=== PATIENT | male | born 1980 | race Hispanic/Latino ===

== ENCOUNTER → 2021-10-21 16:41 | Outpatient (CLI) | payer OTHER, SELFPAY ==
[2021-10-21 18:39] LABS: Eosinophils Percent Auto 0.4 % (2-4); Hematocrit 42.9 % (41-53); Lymphocytes Percent Auto 19.4 % (25-40); Mean Corpuscular HGB Conc 35.1 % (30-36); Mean Corpuscular Hemoglobin 30.8 PG (26-34); Mean Corpuscular Volume 87.8 fL (80-100); Monocytes Percent Auto 8.2 % (3-14); Neutrophils Percent Auto 71.6 % (50-75); Platelet Count 251 X10^3/uL (150-400); Red Blood Cell Count 4.88 X10^6/uL (4.5-5.9); White Blood Cell Count 8.4 X10^3/uL (4.5-11.0)
[2021-10-21 18:40] LABS: Add Manual Diff / Slide Review NO; Basophils Absolute Auto 0 /uL (0-100); Basophils Percent Auto 0.4 % (0-2); Eosinophils Absolute Auto 0 /uL (0-450); Lymphocytes Absolute Auto 1600 /uL (1100-4500); Monocytes Absolute Auto 700 /uL (0-900); Neutrophils Absolute Auto 6000 /uL (1500-7000)
[2021-10-21 19:34] LABS: Erythrocyte Sedimentation Rate 4 MM/HR (0-15)
[2021-10-21 19:42] LABS: Appearance Urine UA CLEAR; Bilirubin Urine UA NEGATIVE (NEGATIVE); Color Urine UA YELLOW; Glucose Urine UA NEGATIVE (Negative); Ketones Urine UA NEGATIVE (NEGATIVE); Leukocyte Esterase Urine UA NEGATIVE (NEGATIVE); Nitrite Urine UA NEGATIVE (Negative); Occult Blood Urine UA TRACE-LYSED (Negative); Protein Urine UA NEGATIVE (Negative); Specific Gravity Urine UA 1.025 (1.000-1.035); Urobilinogen Urine UA 0.2 E.U./dL (0.2)
[2021-10-21 20:21] LABS: RBC Urine 0-1/HPF (0-5/HPF); WBC Urine None Seen (0-5/HPF)
[2021-10-21 20:22] LABS: Bacteria Urine None Seen; Culture Indicated Urine Cult Not Indicated
[2021-10-22 14:07] LABS: BUN Creatinine Ratio 23.7 (6-22); Blood Urea Nitrogen 18 mg/dL (9-20); Calcium 9.2 mg/dL (8.4-10.2); Carbon Dioxide 23 mmol/L (22-32); Chloride 104 mmol/L (98-107); Estimated Glomerular Filt Rate > 60.0 mL/min (>60); Glucose 87 mg/dL (70-100); HEMOLYSIS < 15 (0-50); Potassium 3.8 mmol/L (3.4-5.1); Sodium 140 mmol/L (137-145)
[2021-10-22 14:09] LABS: Hemoglobin A1C% w Est Avg Glu 5.3 % (4.0-6.0)
== END ==
PROVIDERS: PCP Orthopaedic Surgery; Referring Provider Orthopaedic Surgery; Visit Provider Orthopaedic Surgery
DX: Z01.818 Encounter for other preprocedural examination (principal); Z01.812 Encounter for preprocedural laboratory examination; R73.9 Hyperglycemia, unspecified; N39.0 Urinary tract infection, site not specified; E79.0 Hyperuricemia without signs of inflammatory arthritis and tophaceous disease
CPT/HCPCS: 36415; 80048; 81001; 83036; 84550; 85025; 85651; 93005; 93010

== ENCOUNTER 2022-01-19 08:25 | Day surgery (SDC) | payer OTHER, SELFPAY ==
[2022-01-12 09:55] VITALS: BMI 23.1
[2022-01-19] VITALS (15 sets, daily range): BP systolic 102–122; BP diastolic 52–72; PULSE 70–92; RESP 12–18; TEMP 35.8–36.6; O2SAT 96–99; BMI 23.1
--- NOTE | 2022-01-19 08:51 | DI.RAD.S_ITS ---
PROCEDURE: XR PELVIS 1-2V INDICATIONS: inner op right hip TECHNIQUE: Intra-operative view of the pelvis and hip acquired. COMPARISON: None. FINDINGS: Bones: 2 images demonstrate incomplete placement of a total right hip arthroplasty. Hardware is in expected positions. Soft tissues: Overlying surgical retractors are present, along with other intraoperative changes. IMPRESSION: Operative imaging utilized during total hip arthroplasty with no radiographic evidence of complications. Dictated by: Corbin Cohen M.D. on 01/19/2022 at 17:17 Approved by: Corbin Cohen M.D. on 01/19/2022 at 17:18
--- NOTE | 2022-01-19 09:28 | SUR.PREOP ---
Account Planner services called for all pre-op and basic discharge instructions. Pt will need a call in again for discharge specifics. at bedside during call as well. Pt verbalizes he has no questions as of now.
[2022-01-19 09:33] LABS: COVID19 -Nasal RAPID Negative (Negative)
[2022-01-19] MEDS: LACTATED RINGERS 1,000 ML 42 ML IV (09:33)
[2022-01-19] MEDS: ACETAMINOPHEN 325 MG TABLET 975 MG PO (09:33)
[2022-01-19] MEDS: CELECOXIB 200 MG CAPSULE PO (09:34)
[2022-01-19] MEDS: VANCOMYCIN 1,000 MG/200 ML PIGGYBACK 200 MG IV (10:01)
--- NOTE | 2022-01-19 10:59 | PM.PREOP ---
Pre-operative Note COVID-19 COVID-19 status: Negative Interval Note History & Physical reviewed/Exam performed by Physician: Yes Changes to H&P: No
[2022-01-19] MEDS: CEFAZOLIN 2 GM/20 ML SYRINGE IV ×2 (11:27→20:33)
[2022-01-19] MEDS: TRANEXAMIC ACID 1,000 MG VIAL 2000 MG INJ ×2 (11:28→11:54)
--- NOTE | 2022-01-19 11:44 | SUR.OPER ---
Lateral on padded OR bed. Gel axillary roll. Arms secured on padded armboard with pillow supporting top arm. Gel pad placed under left arm. Padded hip positioner braces x4 - anterior and posterior chest and pelvis. Additional gel pad used anterior pelvis. Gel pad under bottom leg from knee to foot and secured with tape over sheet. Operative leg in control of the Surgeon.
--- NOTE | 2022-01-19 11:45 | SUR.OPER ---
Money Room Teller phone used for pre-op interview. Rectification Printer Zach ID # [id number]. Patients S.Tesha Castillo at bedside, phone # [phone], Dr. Granaods to call her with an update after surgery. All questions answered.
[2022-01-19] MEDS: BUPIVACAINE 0.25% (PF) 60 ML, EPINEPHrine 0.3 MG INJ (11:52)
[2022-01-19] MEDS: EPINEPHrine 1 MG/10 ML SYRINGE INJ (11:56)
[2022-01-19] MEDS: BUPIVACAINE LIPOSOME 266 MG/20 ML VIAL INJ (12:50)
[2022-01-19] MEDS: SODIUM CHLORIDE IRRIG SOLUTION 250 ML, POVIDONE-IODINE SPONGE STICKS 1 APPLIC IRR (12:52)
--- NOTE | 2022-01-19 14:00 | DI.RAD.S_ITS ---
PROCEDURE: XR HIP W PEL IF DONE RT 2V INDICATIONS: POST OP RIGHT HIP/TOTAL TECHNIQUE: AP pelvis and lateral view of the right hip acquired. COMPARISON: None. FINDINGS: Bones: Patient is status post right hip arthroplasty, with hardware components in expected positions. The hip joint appears congruent. The visualized bony structures appear intact. Soft tissues: Overlying postoperative changes are noted. No suspicious soft tissue densities. IMPRESSION: Expected postsurgical change for right hip arthroplasty. Dictated by: Sharlene Balbuena MD, PhD on 01/19/2022 at 16:50 Approved by: Sharlene Balbuena MD, PhD on 01/19/2022 at 16:51
[2022-01-19] MEDS: ONDANSETRON 4 MG/2 ML INJ IV ×2 (14:04→17:43)
--- NOTE | 2022-01-19 14:16 | SUR.PHASEI ---
Attempted to call report but RN was at lunch and will have them call me when they are done.
--- NOTE | 2022-01-19 14:23 | PM.OP.1 ---
Operative Date/Time/Diagnoses Date of procedure: 01/19/22 Time of procedure: 14:20 Pre-op diagnosis: Severe right hip osteoarthritis with marked right femoral shortening severe destruction of the femoral head with lateral subluxation of hip Post-op diagnosis: same Procedure & Clinicians Procedure: Right total hip arthroplasty posterior approach Same procedure as scheduled: Yes Indications: The patient has had progressively worsening right hip pain with radiographic changes consistent with arthritis. Non-operative management has failed and the patient has requested total hip replacement. The risks, benefits and alternatives to surgery were discussed with the patient prior to proceeding. Risks discussed included, but were not limited to, failure to relieve pain, leg length discrepancy, dislocation, stiffness, infection, nerve damage, deep venous thrombosis, pulmonary embolism, stroke, coma, heart attack, permanent paralysis and , as well as the potential need for eventual revision of the prosthetic. Surgeon: Cheri Granados Vice President Global Digital Marketing: Js Brown Anesthesia Type: General and Spinal Operative Notes Findings: Severe right hip osteoarthritis, some deformity of the right proximal femur, adequate quality bone, some lateral wear the acetabulum with slight uncoverage Closure Type: primary Specimen(s): none sent Prosthetic devices, grafts, tissues, transplants, or devices: Granados and nephew anthology size 6 high offset, redapt 56 mm cup, three 6.5 mm screws, neutral poly liner, +0 head Estimated Blood Loss (mL): 250 Blood products transfused: none Procedure in detail: The patient was seen in the pre-operative area, where the patient identified the right hip as the operative site and this was marked with my initials. The patient received pre-operative antibiotics and was taken to the operating room and placed on the operative table in the left lateral decubitus position after satisfactory anesthesia. A windows system admin out was performed. The right leg was prepared from the ankle to the iliac crest with ChloroPrep in the usual fashion and draped through sterile drapes. The hip was approached through an approximately 20 cm incision centered over the greater trochanter and curving gently posteriorly as it went proximally. This was carried sharply to the fascia betty, which was divided and retracted with a self retaining retractor. The trochanteric bursa was excised with care being taken to avoid the sciatic nerve, which was identified and protected throughout the case. The short external rotators were incised and the capsulomuscular flap was raised and tagged for later repair. The hip was dislocated, and a femoral neck osteotomy performed approximately 15 mm above the lesser trochanter. Retractors were placed around the femur. The canal was opened with a box cutting osteotome, followed by a T handled reamer and a lateralizing reamer. The chili pepper broach was then used, followed by sequential broaching until there was good stability of the broach in the femur. Retractors were placed to expose the acetabulum. The labrum and central soft tissues were removed. Reaming was performed initially going up in 2 mm increments, then 1 mm increments until good bite was obtained with an odd sized reamer. The cup 1 mm larger than the last reamer was then inserted using the appropriate anteversion guides. He had a somewhat washed out acetabulum. It was specifically medialized. There was some lateral wall of mild deficiency. I specifically medialized it and then worked to get good acetabular coverage. The redapt cup was selected. It was stabilized with 3 screws. They were left nonlocking. A trial neutral liner was placed. I did a trial of both a lateralizing acetabular liner and a nonlateralized the acetabular liner. The broach was placed in the canal. A trial head and neck were then placed and the hip relocated and checked for leg length and stability. An intraoperative film confirmed the component position and no evidence of fracture. The patient was stable in the position of sleep, of squatting, and could be put through a range of motion with 45 degrees internal rotation without dislocation. At 90 degrees flexion, internal rotation to 80 was possible before dislocation. This was felt to be satisfactory and the appropriate components were opened, and the trials were removed. In maximum external rotation with the +4 lateralizing acetabular liner there was slight impingement on the acetabular liner so I would also did a trial with a neutral acetabular liner and a +4 head. There was no impingement with this combination. The standard acetabular liner was impacted into position. The final stem was then impacted into the prepared femoral canal. A brief Betadine soak was performed while trialing with head options. The hip was meticulously irrigated with normal saline. Finally the femoral head was impacted onto the stem. The acetabulum was cleared of all material and the hip relocated one final time. The capsulomuscular flap was then repaired to the greater trochanter though an awl hole using the tag sutures. The short external rotators were repaired with a nonabsorbable suture. The fascia betty was closed with Vicryl. The subcutaneous layer was closed with barbed sutures and SteriStrips. An Aquacel Ag dressing was applied and the patient was taken to recovery having tolerated the procedure well. Complications: none Post-operative Condition: stable Disposition: observation Plan for aftercare: The patient will be maintained on a standard total hip replacement protocol with weight bearing as tolerated and posterior hip precautions. The patient will receive Aspirin and sequential compression devices for DVT prophylaxis. The patient will be discharged home when safe for the home environment.
--- NOTE | 2022-01-19 14:25 | SUR.PHASEI ---
Attempted again to try to call report. RN unable to take report.
[2022-01-19] MEDS: IBUPROFEN 400 MG TABLET PO (17:08)
[2022-01-19] MEDS: ACETAMINOPHEN 325 MG TABLET 650 MG PO (17:09)
[2022-01-19] MEDS: METOCLOPRAMIDE 10 MG/2 ML INJ IV (20:33)
[2022-01-19] MEDS: DOCUSATE 100 MG CAPSULE PO (20:33)
[2022-01-19] MEDS: ASPIRIN EC 81 MG TABLET PO (20:33)
[2022-01-19] MEDS: LACTATED RINGERS 1,000 ML 100 ML IV (20:33)
[2022-01-20 01:00] VITALS: BP 140/55; PULSE 63; RESP 18; TEMP 36.6; O2SAT 98
[2022-01-20] MEDS: CEFAZOLIN 2 GM/20 ML SYRINGE IV (03:58)
[2022-01-20 05:00] VITALS: BP 110/63; PULSE 68; RESP 18; TEMP 36.7; O2SAT 98
[2022-01-20 06:10] LABS: Hematocrit 33.7 % (41-53); Hemoglobin 11.8 g/dL (13.5-17.5)
[2022-01-20 07:25] VITALS: BP 103/57; PULSE 68; RESP 16; TEMP 37.1; O2SAT 99
[2022-01-20] MEDS: ACETAMINOPHEN 325 MG TABLET 650 MG PO ×2 (07:38→11:04)
[2022-01-20] MEDS: OXYCODONE IR 5 MG TABLET PO (07:38)
--- NOTE | 2022-01-20 08:25 | PT.IIE ---
"Current Diagnoses Unilateral primary osteoarthritis, right hip (01/19/22) Surgery Performed Operation Date: 01/19/22 10:45 Actual Procedures p Total Hip Arthroplasty(Right) - Cheri Granados MD Surgical History (Last Reviewed 01/20/22 @ 09:04 by Sayda Frey PA-C) No history of previous surgery Medical History Healthy adult male Estonian speaking patient Physical Therapy Inpatient Evaluation/Re-Eval M1 PT/OT-IP Prior Functional Status Start: 01/20/22 13:22 Freq: NEEDED Status: Active Protocol: Document 01/20/22 08:25 AB (Rec: 01/20/22 13:41 AB [email or web address]) Medical Review Prior Functional Status Medical History Reviewed Yes Communication able to make needs known; mainly nepali speaking but able to comprehend in welsh but require repetitions and visual cues. Mobility and Gait pt stated that he is indepenent with all mobiltiies and ambulation without AD Social History Household Members significant other Living Arrangements Apartment/Condo Number of Floors (Floors) One Floor Number of Stairs To Enter/Railing? 2 step platform to enter the apartment Home Environment Standard Height Toilet,Walk in Shower Home Equipment Front Wheel Walker,Grab Bars Near Toilet Employment Status Forest Manager Employed Additional Social History Comment pt stated that he works at a [employer] company M2 PT-IP Current Condition Start: 01/20/22 13:22 Freq: NEEDED Status: Active Protocol: Document 01/20/22 08:25 AB (Rec: 01/20/22 13:41 AB [email or web address]) Physical Therapy Current Condition Current Condition Evaluation Date 01/20/22 Treatment Diagnosis s/p R ABELARDO posterior approach; difficulty in walking Onset Date 01/19/22 M3 PT-IP Subjective Start: 01/20/22 13:22 Freq: NEEDED Status: Active Protocol: Document 01/20/22 08:25 AB (Rec: 01/20/22 13:41 AB [email or web address]) Subjective Physical Therapy Visit Type Type Initial Evaluation Visit Start Time 08:25 Visit Stop Time 09:27 Total Visit Minutes 72 Number of STEWARD/STEWARDESS SECOND Visits 0 Physical Therapy Visit Comments Patient Comments agreeable to do PT Therapy Pain Assessment Pain When Pain Assessed At Rest Pain Present Pain Present Pain Reported Location Right Hip Intensity 4 Scale Used Numeric (0 - 10) Pain Management Techniques Apply Cold,Distraction, Modification of Treatment,Re- positioning,Timing of Activity with Medications M4 PT-IP Mobility and Gait Start: 01/20/22 13:22 Freq: NEEDED Status: Active Protocol: Document 01/20/22 08:25 AB (Rec: 01/20/22 13:41 AB [email or web address]) PT-Bed Mobility Assessment Supine to Sit Supine to Sit Standby Assistance PT-Transfer Assessment Sit to and From Stand Sit to and from Stand Standby Assistance,Contact Guard Assistance,1 Person Assistance,Use of Upper Extremities Equipment Transfer Assistive Device Gait Belt,Front Wheeled Walker Orthotic/Prosthetic Devices or Brace: No Transfers Transfer Destination Chair Transfer Technique ambulated Transfer Ability Level of Assist Standby Assistance,Contact Guard Assistance Comments Mobility Comments spouse in room with pt and stated that she will be able to assist pt. educated pt and spouse regarding posterior hip precautions. pt completed supine to sit SBA and sit to stand CGA and ambulated to the chair using FWW CGA. cued for hip precautions. caregiver training conducted. educated spouse on how to use safety belt and how to assist pt. educated pt and spouse on how to complete stair climbing. spouse was able to put safety belt on and assisted pt with sit to stand. ambulated pt to the platform step and assisted pt with up/down platform step using FWW CGA and cues. completed x 2 reps. pt and spouse completed safety. pt ambulated further ~ 75 ft using FWW and ambulated back to the room. sat on chair and positioned. call light and table within reach. pt and spouse without further concerns. Gait Assessment Gait Gait Assistance Required: Standby Assistance,Contact Guard Assist Distance (Feet) 75 Able to Maintain Weight Bearing Status Yes During Gait Assistive Devices Assistive Device Gait Belt,Front Wheeled Walker Orthotic/Prosthetic Devices or Brace: No Gait Deviations General Gait Pattern Antalgic,Decreased Stride Length,Decreased Feet Clearance,Step-to Gait Factors Limiting Gait Function Factors Limiting Gait Function Decreased Activity Tolerance, Decreased Strength,Limited Range of Motion,Pain,Poor Balance,Poor Safety Awareness Stair Climbing Assessment Evaluation Level of Assist On Stairs Contact Guard Assistance,1 Person Assistance Devices Stair Climbing Assistive Devices Front Wheel Walker Technique/Endurance Stair Climbing Direction Ascend and Descend Stair Climbing Technique Step to Step Number of Steps Climbed 1 Query Text: Stair Climbing Set # Repetitions (reps) 2 PT-Balance Assessment Sitting Balance and Reactions Static Sitting Balance Ability Normal Dynamic Sitting Balance Ability Normal Standing Balance and Reactions Static Standing Balance Ability Good Dynamic Standing Balance Ability Fair Device Used FWW M5 PT-IP Objective Assessments Start: 01/20/22 13:22 Freq: NEEDED Status: Active Protocol: Document 01/20/22 08:25 AB (Rec: 01/20/22 13:41 AB [email or web address]) Orientation Orientation/Cognition Level of Alertness Alert Orientation Name,Place,Situation Language Function Ability No Deficits Noted Safety Awareness Understands Safety Issues Memory Description No Deficits Noted Gross Range of Motion Lower Extremity ROM Assessment Within Functional Limits Strength Lower Extremity Strength Assessment Right Impaired Hip 4-/5 Coordination Assessment Gross Coordination Gross Coordination WNL Sensation Assessment Sensation Gross Sensation WNL Muscle Tone Muscle Tone WNL Yes M6 PT-IP Treatment Start: 01/20/22 13:22 Freq: NEEDED Status: Active Protocol: Document 01/20/22 08:25 AB (Rec: 01/20/22 13:41 AB [email or web address]) Physical Therapy Treatment Education Education Provided Precautions,Weight Bearing Status,Post-Op Packet,Safety M7 PT-IP Assessment and Plan Start: 01/20/22 13:22 Freq: NEEDED Status: Active Protocol: Document 01/20/22 08:25 AB (Rec: 01/20/22 13:41 AB [email or web address]) PT Summary Assessment and Plan Potential Rehabilitation Potential Good Status of Condition at Evaluation Stable Summary Impairments Pain,ROM,Strength,Balance, Coordination,Sensation,Tone, Cognition,Bed Mobility, Transfers,Gait,Activity Tolerance Assessment Summary pt requiring SBA to CGA with mobility using FWW and spouse was able to assist pt safely. pt has outpt PT scheduled. pt may go home when medically stable. Goals Bed Mobility Goal Independent Transfer Goal Independent,Front Wheeled Walker Gait Goal Independent,Front Wheel Walker Gait Distance 250 Other Goals up/down 2 platform steps using FWW mod I Days to Meet Goals 5 Frequency of Treatment Frequency Of Treatment Twice a Day Treatment Plan Physical Therapy Treatment Plan Bed Mobility Training,Transfer Training,Gait Training, Therapeutic Exercise,Balance Retraining,Post Op Education, Discharge Planning,Hot or Cold Pack,Neuromuscular Re-ed, Coordination Retraining,Manual Therapy Precautions Posterior Hip Precautions No Hip Flexion > 90 degrees,No Hip Internal Rotation,No Hip Adduction Weight Bearing Status Weight Bearing Status Weight Bear as Tolerated Allowed Weight Bearing Amount (enter % RLE WBAT or #) (%) Recommendations To Nursing Amount of Assist Needed 1 Person Assist Discharge Recommendations PT Discharge Recommendations Home with Assistance, Outpatient PT Transportation Needs at Discharge Private Vehicle"
[2022-01-20] MEDS: DOCUSATE 100 MG CAPSULE PO (09:01)
[2022-01-20] MEDS: ASPIRIN EC 81 MG TABLET PO (09:01)
--- NOTE | 2022-01-20 09:02 | P.DS_ITS ---
History of Present Illness History of Present Illness Date Patient Seen: 01/20/22 Time Patient Seen: 09:03 Chief complaint: OPB Narrative: Patient is complaining of [id number] right hip pain this morning. He has not worked with physical therapy yet. His is at bedside. He notes his nausea is resolving today. He is concerned because he has stairs at home. Discharge Providers Provider Discharge Date: 01/20/22 Primary care physician: Cheri Granados MD Consults: 01/19/22 08:51 Consult to Anesthesiology Routine Comment: Consulting Provider: Anesthesiologist Reason for consultation: Regional block for post operative pain control 01/19/22 14:32 Consult to Discharge Planning Routine Comment: Consult to Physical Therapy Evaluate & Treat Comment: Physician Instructions: post op ABELARDO protocol Consult to Respiratory Therapy Evaluate & Treat Comment: Physician Instructions: Evaluate and treat Discharge provider: Sayda Frey PA-C Summary Hospital Course Discharge Diagnosis: Severe right hip osteoarthritis with marked right femoral shortening severe destruction of the femoral head with lateral subluxation of hip Hospital Course: Operative Date/Time/Diagnoses Date of procedure: 01/19/22 Time of procedure: 14:20 Procedure & Clinicians Procedure: Right total hip arthroplasty posterior approach Same procedure as scheduled: Yes Indications: The patient has had progressively worsening right hip pain with radiographic changes consistent with arthritis. Non-operative management has failed and the patient has requested total hip replacement. The risks, benefits and alternatives to surgery were discussed with the patient prior to proceeding. Risks discussed included, but were not limited to, failure to relieve pain, leg length discrepancy, dislocation, stiffness, infection, nerve damage, deep venous thrombosis, pulmonary embolism, stroke, coma, heart attack, permanent paralysis and , as well as the potential need for eventual revision of the prosthetic. Surgeon: Cheri Granados Sprinkling System Installer: Js Brown Anesthesia Type: General and Spinal Operative Notes Findings: Severe right hip osteoarthritis, some deformity of the right proximal femur, adequate quality bone, some lateral wear the acetabulum with slight uncoverage Closure Type: primary Specimen(s): none sent Prosthetic devices, grafts, tissues, transplants, or devices: Granados and nephew anthology size 6 high offset, redapt 56 mm cup, three 6.5 mm screws, neutral poly liner, +0 head Estimated Blood Loss (mL): 250 Blood products transfused: none Status at Discharge Cognitive/behavioral status at discharge: oriented Functional status at discharge: uses cane/walker Overall status at discharge: patient is progressing back to baseline Exam Vital Signs (past 8 hours): - 01/20/22 05:00 01/20/22 07:25 Temperature 98.1 F 98.7 F Pulse Rate 68 68 Respiratory Rate 18 16 Blood Pressure 110/63 103/57 L Pulse Oximetry 98 99 Oxygen Flow Rate 0 Oxygen Delivery Method Room Air Oxygen Flow Rate 0 Narrative Exam Narrative: Pleasant 41-year-old male, resting comfortably in bed, no acute distress. His is at bedside. Incision is clean, dry, intact. Bilateral lower extremity: Motor functions are grossly intact, sensation is grossly intact to light touch, calves are soft and nontender to palpation. Objective Labs Result Diagrams: 01/20/22 06:00 Labs: Laboratory Results - last 24 hr 01/19/22 01/20/22 08:42 06:00 Hgb 11.8 L Hct 33.7 L SARS-CoV-2 (PCR) Negative PFSH Medical History Healthy adult male Barbadian speaking patient Surgical History No history of previous surgery Social History household members: significant other Smoking Status: Never smoker alcohol intake: current Discharge Assessment & Plan Assessment and Plan Assessment: Stable status post right total hip arthroplasty, posterior approach -postop nausea/vomiting, resolving Plan of Treatment: -mobilize with PT. Weightbearing as tolerated with front wheel walker. Maintain posterior hip precautions x6 weeks -continue with multimodal pain management -aspirin 81 mg twice daily x6 weeks for DVT prophylaxis -DC home today once cleared by PT. The patient is concerned about the stairs he has home Discharge Plan Discharge Plan Patient Disposition: Home Discharge orders & Medications Discharge Orders: Discharge (Order); Ordered 01/20/22 Ordered By: Sayda Frey Prescriptions: New acetaminophen 500 mg capsule 500 mg PO Q4H MDD Max 3000 mg per day PRN (Reason: fever or pain) Qty: 90 0RF aspirin 81 mg Tablet,Delayed Release (Dr/Ec) 81 mg PO BID 42 Days Qty: 84 0RF Rx Instructions: Prevent blood clots docusate sodium 100 mg Capsule 100 mg PO BID PRN (Reason: Constipation from narcotic pain meds) Qty: 20 0RF ibuprofen 400 mg Tablet 400 mg PO Q6HR MDD Max 2400 mg per day PRN (Reason: Pain/inflammation) Qty: 90 0RF ondansetron 4 mg Tablet,Disintegrating 4 mg PO Q4HR PRN (Reason: Nausea/vomiting) Qty: 10 0RF oxycodone 5 mg Tablet 5 mg PO Q3HR PRN (Reason: Pain, Moderate (4-6)) Qty: 42 0RF Discontinued ibuprofen 200 mg Capsule 200 mg PO BID PRN (Reason: Pain) Follow up/Referrals: Cheri Granados MD [Primary Care Provider] - (10-14 days for postoperative visit) Diet/Activity/Treatments Diet: Diet as Tolerated Other treatments: Medications: -Aspirin 81mg twice daily x6 weeks to prevent blood clots. -OTC Tylenol 500 mg 1 tablet every 4 hours as needed for pain/fever. Max 6 tablets per day. -Ibuprofen 400 mg 1 tablet every 4 hours as needed for pain/inflammation. Max 2,400 mg per day. -Oxycodone 5 mg take 1-2 tablets every 4 hours as needed for moderate-severe pain (narcotic pain medication). -As needed medications: -Ducolax and /or MiraLax as needed for constipation from narcotic pain medications. -Pepcid AC as needed for stomach upset (usually from aspirin or ibuprofen). Dressing/Wound care: -Keep Aquacell dressing in place until postoperative follow-up office visit. -Okay to shower. Keep wound out of direct water stream. No soaking or submerging until all the scabs fall off (approximately 6 weeks). -No lotions, ointments, or scar creams directly to the incision until the wound is healed (4-6 weeks), -Please call the office if dressing becomes wet, soiled, or saturated. Activities: -Maintain posterior hip precautions x6 weeks. -Weight-bearing as tolerated. Use front wheeled walker, and progress to cane when safe. -Continue with home exercises as directed by your physical therapist. -Elevate ?toes above the nose if you have significant swelling in your lower leg. (A wedge pillow is easiest.) -Ice your incision as needed for pain/inflammation/swelling. Protect your skin with a folded pillowcase. Follow-up: -Follow-up with your surgeon or PA in the office in 10-14 days after surgery. -Follow-up with your surgeon 6 weeks postoperatively. Call the office if you have chest pain, shortness of breath, significant swelling that will not resolve with elevating, fever over 101?, significantly worsening pain, or are concerned you might need to go to the Emergency Room. [facility]: [phone] Skin/Wound/Dressing Care Report to your healthcare provider any signs of infection, such as:: chills, fever, night sweats, unusual drainage and unusual redness Visit Report/Discharge Packet Instructions: DI for Hip Replacement Stand Alone Forms: Surgery Discharge Discharge Data Primary Care Provider: Cheri Granados Attending Provider: Cheri Granados Quality VTE Deep Vein Thrombosis/Pulmonary Embolism Present on Admission: No
--- NOTE | 2022-01-20 10:39 | CM.DANOTE ---
DCP: Case received, EMR reviewed and met with patient. Introduced self and role. Was able to obtain brief information regarding patient's baseline activity level prior to hospitalization. DCP assessment completed with information currently available. Patient is a 41 year old male who admitted yesterday morning to the care of the orthopedic team. PCP: Currently unknown. Payer: confirmed: [facility]. Patient came to the hospital via private vehicle for a surgical procedure. Patient had right total hip arthroplasty posterior approach. Patient has history of severe right hip osteoarthritis, with marked right femoral shortening. Met briefly with patient. He resides with spouse, in [place]. At his baseline, he is independent, and works at [email or web address]. He confirmed that his spouse will be helping him when he goes home. According to notes, he does have some stairs in the home. He did work with P.T. today. P: DCP to continue to follow. Patient could be going home today, pending P.T. note. Jo Polo RN/Surgical Instrument Repair Specialist Discharge Planning/Care Management CM Discharge Assessment Start: 01/20/22 10:37 Freq: Status: Active Protocol: Document 01/20/22 10:38 (Rec: 01/20/22 10:39 [id number]) Discharge Planning Assessment Assigned Rivet Sticker Jo Polo RN/Surgical Instrument Repair Specialist Advance Directives? No History Provided By Patient,Medical Record Prior Living Arrangements Apartment/Condo Household Members significant other Type of transporation used prior to Drives own vehicle admit Independent with ADL's Yes Is patient alert and oriented? Yes Caregiver for Another No Patient/Family Preference OP PT Therapy Discharge Plan Home Transportation Arrangement Spouse Referrals Initiated None needed Review Status In Process Next Review Type Continued Stay Review Pre-Anesthesia Assessment Start: 01/12/22 09:55 Freq: Status: Complete Protocol: Document 01/12/22 09:55 CAB (Rec: 01/12/22 10:45 CAB [id number]) Pre-Anesthesia Assessment Preferred Name Paul Patient Information Reviewed Via Phone Assessment Assessment Completed With Patient,Other Comment Interpreting services-Language Exchange Diagnostic Results BMP/CMP,CBC,Urinalysis Comment Labs @ [facility], ECG done per pt, not here, COVID screen-will need RAPID on admit Primary Care Provider [facility] [place] [facility] Clearance Received Yes Seen Specialist in Last 12 Months Yes Specialist Seen Orthopedist Comment PCP clearance 10/29/21 scanned to record Primary Language Solutions Executive Security Required Yes Height 5 ft 7 in Weight 148 lb Body Mass Index (BMI) 23.1 Visual Assist Glasses Dentition Type Teeth, Missing Barriers to Learning Language Hx Anesthesia Reactions Pt does not have a prior surgical history Hx Family Anesthesia Reaction No Hx Malignant Hyperthermia No Hx Blood Transfusions No Anesthesia Review Requested No alcohol intake current alcohol intake frequency holidays/special occasions only Smoking Status Never smoker Substance Use Type does not use Pain Present Pain Reported Musculoskeletal Symptoms Abnormal Gait,Difficulty Walking,Joint Pain History of Falling (Recent or History of No ) Patient is completely paralyzed or No completely immobile Prosthesis or Orthotic Device Front Wheel Walker,Crutches Mental Status Oriented to own ability Is patient on oxygen? No Does patient have ARREDONDO/SOB No Hx Sleep Apnea No Currently Taking a Beta Alvina No Hx Chest Pain No Hx SOB No Hx Syncope or Dizziness No Anti-Coagulant Therapy No Has a Methods And Procedures Analyst No Cardiac Testing No Hx Pacemaker/ICD No Pacemaker Rep Required? No Cardiac Clearance Received Not Applicable Diet Type At Home Regular dysphagia No Urinary Catheter Present No Hx Urinary Self Catheterization No Diabetes No Hx Drug Resistant Organism No Presence of External or Internal Medical No Devices Have you had any close contact with No someone diagnosed with COVID-19? Received a COVID vaccine? Yes: Has not received boosters Marital Status Single Lives With significant other [facility] Significant Other Does the Patient Have Assistance After Yes Surgery Patient Discharge Plan Description Return Home Comment Pt advised overnight length of stay per surgeon Feels Safe in Current Environment Yes Been Physically Hurt or Threatened By a No Person in Current Environment Do you have thoughts of harming yourself None or others? Are you currently considering suicide? No Do you have a plan to hurt yourself or No Plan others? Do You Have Any Spiritual Beliefs That No May Affect Your HC Choices? Do You Have Any Cultural Practices That No May Affect Your HC Choices? Comment Cath[place] Who Can We Speak to About Patient's Care Family, friends Identifying Code for Release of Patient Declines to issue Information Health Care Proxy/Next of Kin Lizz (daughter) Health Care Proxy Emergency Contact Name Zita (S.O.) Emergency Contact PAC Instructions Durable medical equipment, Medications to take/avoid, Nasal antibiotic,No ETOH/ petroleum product on skin DOS, NPO,Sturdy shoes/comfortable clothes,Do not bring valuables and remove jewelry
[2022-01-20 10:57] VITALS: BP 104/61; PULSE 74; RESP 16; TEMP 36.8; O2SAT 98
== END 2022-01-20 11:45 | disposition home or self-care (01) ==
LOC: OR 08:27 → AC 11:02
PROVIDERS: PCP Orthopaedic Surgery; Referring Provider Orthopaedic Surgery; Visit Provider Orthopaedic Surgery
PROC: 0SR90JZ Replacement of Right Hip Joint with Synthetic Substitute, Open Approach (ICD-10-PCS; CPT 27130; principal; 2022-01-19 10:45)
DX: M16.11 Unilateral primary osteoarthritis, right hip (principal); M89.8X5 Other specified disorders of bone, thigh
CPT/HCPCS: 27130; 36415; 72170; 73502; 85014; 85018; 87635; 97161; 97530; C1776; C9803; C9290; J0171; J0690; J1100; J2250; J2274; J2405; J2704; J2765; J3010